=== PATIENT | male | born 1945 | race Caucasian/White ===

== ENCOUNTER 2021-09-23 23:11 | Observation (INO) | payer MEDICARE ==
[~2021-09-23] VITALS: Ht 180.3 cm; Wt 87.9 kg
[2021-09-23 23:47] LABS: BASOPHILS ABSOLUTE AUTO 0.04 K/mm3 (0.00-0.23); BASOPHILS PERCENT AUTO 0 % (0-2); EOSINOPHILS PERCENT AUTO 0 % (0-6); Hematocrit 48.5 % (37.0-53.0); Hemoglobin 15.2 g/dL (13.5-17.5); IMMATURE GRAN ABSOLUTE AUTO 0.24 K/mm3 (0.00-0.10); IMMATURE GRAN PERCENT AUTO 1 % (0-1); LYMPHOCYTES ABSOLUTE AUTO 2.51 K/mm3 (0.84-5.20); LYMPHOCYTES PERCENT AUTO 14 % (21-46); MONOCYTES ABSOLUTE AUTO 1.49 K/mm3 (0.16-1.47); MONOCYTES PERCENT AUTO 8 % (4-13); Mean Corpuscular HGB 33.6 pg (26.0-34.0); Mean Corpuscular HGB Conc 31.3 g/dL (31.5-36.5); Mean Corpuscular Volume 107 fL (80-100); Mean Platelet Volume 11.5 fL (9.1-12.4); NEUTROPHILS ABSOLUTE AUTO 13.52 K/mm3 (1.96-9.15); NEUTROPHILS PERCENT AUTO 76 % (41-73); NRBC ABSOLUTE 0.03 K/mm3 (0.00-0.02); NRBC Auto 0.2 /100 WBC (0.0-0.2); Platelet Count 156 K/mm3 (150-400); RDW Coefficient Variation 14.3 % (11.7-14.2); RDW Standard Deviation 57.7 fL (35.1-46.3); Red Blood Cell Count 4.53 M/mm3 (4.30-5.90)
[2021-09-24 00:10] LABS: Source, Urine Foley catheter
[2021-09-24 00:13] LABS: Bilirubin, Urine Neg (Neg); Blood, Urine 1+ (Neg); Glucose Qualitative, Urine Neg (Neg); Ketones, Urine Neg (Neg); Leukocyte Esterase, Urine Neg (Neg); Nitrite, Urine Neg (Neg); Protein, Urine 2+ (Neg); Urobilinogen, Urine NORM (Normal)
[2021-09-24 00:16] LABS: Magnesium, Blood 4.1 mg/dL (1.6-2.4)
[2021-09-24 00:21] LABS: Albumin, Blood 3.4 g/dL (3.4-5.0); Bilirubin, Total 1.1 mg/dL (0.1-1.0); Bun/Creatinine Ratio 32.2 (12.0-20.0); Calcium, Blood 9.5 mg/dL (8.5-10.1); Creatinine, Blood 3.45 mg/dL (0.60-1.20); Globulin, Blood 3.5 g/dL (2.2-4.0); Potassium, Blood 4.9 mmol/L (3.5-5.5); Total Protein, Blood 6.9 g/dL (6.4-8.2)
[2021-09-24 00:25] LABS: Appearance, Urine Clear (Clear); Color, Urine Yellow (P-Yellow)
[2021-09-24 00:27] LABS: Amorphous Light (0-Heavy); Bacteria Rare /hpf; Mucus Light (0-Heavy); Red Blood Cells, Urine 0-2 /hpf (0-2); Squamous Epithelial Cells Rare /hpf (Few); White Blood Cells, Urine Not Seen /hpf (0-5)
[2021-09-24 01:15] LABS: Base Excess Venous -7.1 mmol/L; Bicarbonate Venous 18.3 mmol/L (24.0-30.0); PCO2 Venous 43.6 mmHg (38-42)
[2021-09-24 01:16] LABS: pH Blood Venous 7.27 (7.34-7.37)
[2021-09-24 01:25] LABS: Calcium, Ionized (POC) 1.18 mmol/L (1.10-1.46); Chloride (POC) 125 mmol/L (98-108); Creatinine (POC) 3.3 mg/dL (0.8-1.3); Glucose (ISTAT POC) 107 mg/dL (70-99); Hemoglobin (POC) 11.9 g/dL (13.5-17.5); Potassium (POC) 4.5 mmol/L (3.5-5.5); Sodium (POC) 157 mmol/L (135-148); Total CO2 (POC) 21 mmol/L (21-32)
[2021-09-24] MEDS ORDERED: CLONAZEPAM1 MG PO (05:09)
[2021-09-24] MEDS ORDERED: [UNRECOGNIZED DRUG - CODE] PO (05:09)
[2021-09-24] MEDS ORDERED: Enalapril Malea20 MG PO (05:09)
[2021-09-24] MEDS ORDERED: SPIRONOLACTONE50 MG PO (05:09)
[2021-09-24] MEDS ORDERED: NEBIVOLOL HCL20 MG PO (05:10)
[2021-09-24] MEDS ORDERED: OLMESARTAN MEDO20 MG PO (05:11)
--- NOTE | 2021-09-24 06:06 | NUR ---
SHIFT SUMMARY ASSUMED CARE OF PT AROUND 0500. PT IS OBTUNDED. FAMILY CAME UP WITH PT. SON AND DAUGHTER IN [place] IN ROOM. PT IS RESTING COMFORTABLY BUT HAS IRREGULAR BREATHING PATTERN. DAUGHTER EXPRESSED CONCERN ABOUT WHAT TO DO AFTER PT HAS PASSES.
--- NOTE | 2021-09-24 08:07 | NUR ---
TOD 0715, DOUBLE VERIFIED WITH THIS RN AND [facility]
== END 2021-09-24 10:08 ==
LOC: EDBD 23:11 → ER 23:11 → PCU 23:12
PROVIDERS: Student in an Organized Health Care Education/Training Program; ADMIT Internal Medicine
DX: R41.82 Altered mental status, unspecified (principal); I47.1 Supraventricular tachycardia; E87.2 Acidosis; I11.9 Hypertensive heart disease without heart failure; J90 Pleural effusion, not elsewhere classified; I48.91 Unspecified atrial fibrillation; F03.90 Unspecified dementia, unspecified severity, without behavioral disturbance, psychotic disturbance, mood disturbance, and anxiety; N17.9 Acute kidney failure, unspecified; E87.1 Hypo-osmolality and hyponatremia; Z66 Do not resuscitate
CPT/HCPCS: 51702; 71045; 80047; 80053; 81001; 82803; 83605; 83735; 83880; 85014; 85025; 93005; 93010; 96374-59; 96375; 96375-59; 96376; 99291-25; G0378; J0610; J2270; J2370; J2543; J3370; J3475; J7030; J7040; J7060; J7070; J7120